=== PATIENT | female | born 1995 | race Caucasian/White ===

== ENCOUNTER 2023-03-04 14:38 | Emergency (ER) | payer BC ==
[~2023-03-04] VITALS: Ht 165.1 cm; Wt 86.2 kg
--- NOTE | 2023-03-04 14:41 | NUR ---
Pt seen by . Safety measures in place. Will continue to monitor.
[2023-03-04] MEDS ORDERED: ACETAMINOPHEN 325 MG TABLET PO ONE (14:45)
[2023-03-04] MEDS ORDERED: IBUPROFEN 400 MG TABLET PO ONE (14:45)
[2023-03-04] MEDS ORDERED: ACETAMINOPHEN 325 MG TABLET ONE (14:55)
[2023-03-04] MEDS ORDERED: IBUPROFEN 400 MG TABLET ONE (14:55)
--- NOTE | 2023-03-04 16:42 | NUR ---
Patient discharged to home in stable condition. Written and verbal after care instructions given. Patient verbalizes understanding of instructions. Stressed follow up or return to ER for worsening s/s.
[2023-03-04 16:44] VITALS: BP 101/66
== END 2023-03-04 16:58 | disposition admitted as inpatient to this hospital (09) ==
LOC: ER 14:38
DX: S90.32XA Contusion of left foot, initial encounter (principal); M79.671 Pain in right foot; W51.XXXA Accidental striking against or bumped into by another person, initial encounter; Y93.89 Activity, other specified; Y92.89 Other specified places as the place of occurrence of the external cause; Y99.8 Other external cause status
CPT/HCPCS: 73630; A4663